=== PATIENT | female | born 1995 | race Two or more races ===

== ENCOUNTER 2016-08-10 01:29 | Emergency (ER) | payer OTHER ==
[~2016-08-10] VITALS: Ht 154.9 cm; Wt 59.0 kg
[2016-08-10 02:45] VITALS: BP 119/69
[2016-08-10 03:11] LABS: BILIRUBIN,URINE NEGATIVE (NEG); GLUCOSE,URINE NEGATIVE (NEG); NITRITE,URINE NEGATIVE (NEG); PROTEIN,URINE 100 mg/dL (NEG-TRACE); UROBILINOGEN,URINE 0.2 mg/dL (0.2 mg/dL)
[2016-08-10 03:12] LABS: BACTERIA,URINE FEW /HPF (0-FEW); RBC,URINE TNTC /HPF (0-2); SQUAMOUS EPITHELIAL CELL,UR FEW /LPF; WBC,URINE 20-40 /HPF (0-4)
[2016-08-10] MEDS ORDERED: PHEN-318 PO (03:23)
[2016-08-10] MEDS ORDERED: CEPH-264 PO (03:23)
--- NOTE | 2016-08-10 03:23 | PHYS DOC ---
Past Medical History Past Medical History: No Pertinent History Past Surgical History: No Surgical History Alcohol Use: None Drug Use: None Adult General Chief Complaint Chief Complaint: BLOOD IN URINE HPI HPI Patient is a 21 year old female who presents here today complaining of hematuria, urgency, dysuria, nausea. Patient has any fevers shakes chills. Patient has any vomiting or diarrhea. Patient denies any vaginal discharge. Patient denies any abdominal pain. Patient has no history of hypertension diabetes liver longer kidney problems. Patient does not smoke drink or do any drugs. Patient is not allergic to any medications. Patient had no abdominal surgeries. Patient's last menstrual period was one week ago. Patient's ER workup consisted of a UA) test. Patient was not and her UA was consistent with urinary tract infection. Review of systems Constitutional: Denies fever or chills [] Eyes: Denies change in visual acuity, redness, or eye pain [] All other review systems are negative except as documented in the history of present illness portion. Physical exam Constitutional: Well developed, well nourished, no acute distress, non-toxic appearance. [] HENT: Normocephalic, atraumatic, bilateral external ears normal, oropharynx moist, no oral exudates, nose normal. [] Eyes: conjunctiva normal, no discharge. [] Neck: Normal range of motion, no tenderness, supple, no stridor. [] Cardiovascular:Heart rate regular rhythm, Lungs & Thorax: Bilateral breath sounds clear to auscultation [] Abdomen: Bowel sounds normal, soft, no tenderness, no masses, no pulsatile masses. [] Skin: Warm, dry, Back: No tenderness, Extremities: No tenderness, no cyanosis, Neurologic: Alert and oriented X 3, normal motor function, normal sensory function, no focal deficits noted. [] Psychologic: Affect normal, judgement normal, mood normal. [] Assessment and plan This is a 21-year-old female who presents with urinary tract infection symptoms who has a confirmed UTI by UA. Patient was sent home with Keflex and Pyridium. Patient was instructed to follow-up with her primary care physician in one to 2 days. Patient is to return to the ER she is unable tolerate her antibiotics or if he starts having any significant fevers or any other concerns or abdominal pain. Current Medications Current Medications Current Medications Medications (Trade) Dose Ordered Sig/Marlene Start Time Stop Time Status Last Admin Dose Admin Cephalexin HCl (Keflex) 500 mg 1X ONCE 08/10/16 04:00 08/10/16 04:00 DC Phenazopyridine HCl (Pyridium) 200 mg 1X ONCE 08/10/16 04:00 08/10/16 04:00 DC Allergies Allergies Allergies Coded Allergies Type Severity Reaction Last Updated Verified No Known Drug Allergies 11/10/13 No Current Patient Data Vital Signs Vital Signs Date Time Temp Pulse Resp B/P (MAP) Pulse Ox O2 Delivery O2 Flow Rate FiO2 08/10/16 02:45 98.5 90 16 97 Room Air 98.5 Lab Values Laboratory Tests Test 08/10/16 01:46 08/10/16 02:36 POC Urine HCG, Qualitative Hcg negative (Negative) Urine Collection Type Unknown Urine Color Red Urine Clarity Bloody Urine pH 7.0 Urine Specific [place] 1.015 Urine Protein 100 mg/dL (NEG-TRACE) Urine Glucose (UA) Negative mg/dL (NEG) Urine Ketones (Stick) Trace mg/dL (NEG) Urine Blood Large (NEG) Urine Nitrite Negative (NEG) Urine Bilirubin Negative (NEG) Urine Urobilinogen Dipstick 0.2 mg/dL (0.2 mg/dL) Urine Leukocyte Esterase Large (NEG) Urine RBC Tntc /HPF (0-2) Urine WBC 20-40 /HPF (0-4) Urine Squamous Epithelial Cells Few /LPF Urine Bacteria Few /HPF (0-FEW) Microbiology 08/10/16 Urine Culture - Final, Complete 08/10/16 Urine Culture Result 1 (CATRACHITO) - Final, Complete 08/10/16 Urine Culture Result 2 (CATRACHITO) - Final, Complete 08/10/16 Antimicrobic Susceptibility - Final, Complete EKG EKG [] Radiology/Procedures Radiology/Procedures [] Course & Med Decision Making Course & Med Decision Making Pertinent Labs and Imaging studies reviewed. (See chart for details) [] Dragon Disclaimer Dragon Disclaimer This electronic medical record was generated, in whole or in part, using a voice recognition dictation system. Departure Departure Impression: Primary Impression: Urinary tract infection Disposition: HOME, SELF-CARE Condition: IMPROVED Referrals: ANDREAS DU MD (PCP) Patient Instructions: Urinary Tract Infection Scripts Phenazopyridine Hcl (PYRIDIUM) 200 Mg Tablet 200 MG PO TID, #9 TAB Prov: LINDA LARSEN MD 08/10/16 Cephalexin (KEFLEX) 500 Mg Capsule 500 MG PO QID for 7 Days, #28 CAP Prov: LINDA LARSEN MD 08/10/16 LINDA LARSEN MD Aug 10, 2016 03:23
[2016-08-10] MEDS ORDERED: PHENAZOPYRIDINE 200 MG TABLET. PO ONE (04:00)
[2016-08-10] MEDS ORDERED: CEPHALEXIN 250 MG CAPSULE. PO ONE (04:00)
== END 2016-08-10 03:37 | disposition home or self-care (01) ==
LOC: ER 01:29 → EDBD 01:29 → ER 03:37
DX: N39.0 Urinary tract infection, site not specified (principal)
CPT/HCPCS: 81001; 81025; 87086; 87186; 99284